=== PATIENT | male | born 1995 | race Asian ===

== ENCOUNTER 2024-03-30 10:32 | Emergency (ER) | payer OTHER ==
[~2024-03-30] VITALS: Ht 167.6 cm; Wt 75.4 kg
[2024-03-30 10:47] VITALS: BP 124/78; PULSE 69; TEMP 97.7; O2SAT 98
[2024-03-30 12:34] VITALS: BP 122/82; PULSE 66; RESP 16; TEMP 98; O2SAT 99
== END 2024-03-30 12:34 | disposition home or self-care (01) ==
LOC: MED 10:32
DX: S42.291A Other displaced fracture of upper end of right humerus, initial encounter for closed fracture (principal); W18.30XA Fall on same level, unspecified, initial encounter; Y93.51 Activity, roller skating (inline) and skateboarding; Y92.89 Other specified places as the place of occurrence of the external cause; Y99.8 Other external cause status
CPT/HCPCS: 73030; 99283

== ENCOUNTER 2024-09-04 10:32 | Emergency (ER) | payer OTHER ==
[~2024-09-04] VITALS: Ht 167.6 cm; Wt 81.6 kg
[2024-09-04 10:41] VITALS: BP 135/60; PULSE 70; RESP 16; TEMP 98; O2SAT 97
[2024-09-04] MEDS ORDERED: TRAM-748 PO (11:46)
[2024-09-04] MEDS ORDERED: LID5T TP (11:46)
[2024-09-04 12:15] VITALS: BP 135/60; PULSE 70; RESP 16; TEMP 98; O2SAT 97
== END 2024-09-04 12:15 | disposition home or self-care (01) ==
LOC: MED 10:32
DX: M54.42 Lumbago with sciatica, left side (principal); M79.672 Pain in left foot; Z79.899 Other long term (current) drug therapy; Z98.890 Other specified postprocedural states
CPT/HCPCS: 99283